=== PATIENT | male | born 1955 | race Caucasian/White ===

== ENCOUNTER → 2019-07-07 11:05 | Outpatient (BNVA) | payer MEDICARE, OTHER, SELFPAY | PROVIDERS: Visit Provider Nurse Practitioner Family | DX: E78.5 Hyperlipidemia, unspecified (principal); E11.9 Type 2 diabetes mellitus without complications; I10 Essential (primary) hypertension; F41.9 Anxiety disorder, unspecified | CPT/HCPCS: 80053; 80061; 82044; 83036; 83721 ==

== ENCOUNTER → 2019-11-09 10:49 | Outpatient (BNVA) | payer MEDICARE, OTHER, SELFPAY | PROVIDERS: Visit Provider Nurse Practitioner Family | DX: E11.9 Type 2 diabetes mellitus without complications (principal); E78.5 Hyperlipidemia, unspecified; I10 Essential (primary) hypertension; G82.20 Paraplegia, unspecified; L98.9 Disorder of the skin and subcutaneous tissue, unspecified | CPT/HCPCS: 80048; 80061; 83036 ==

== ENCOUNTER → 2020-12-20 11:33 | Outpatient (BNVA) | payer MEDICARE, SELFPAY | PROVIDERS: Visit Provider Nurse Practitioner Family | DX: E11.9 Type 2 diabetes mellitus without complications (principal); I10 Essential (primary) hypertension; E78.5 Hyperlipidemia, unspecified | CPT/HCPCS: 80053; 80061; 83036 ==

== ENCOUNTER → 2021-03-22 10:10 | Outpatient (BNVA) | payer MEDICARE, SELFPAY | PROVIDERS: PCP Nurse Practitioner Family; Visit Provider Nurse Practitioner Family | DX: E78.5 Hyperlipidemia, unspecified (principal); I10 Essential (primary) hypertension; E11.9 Type 2 diabetes mellitus without complications; F41.9 Anxiety disorder, unspecified | CPT/HCPCS: 84478 ==

== ENCOUNTER → 2021-11-21 08:31 | Outpatient (BNVA) | payer MEDICARE, SELFPAY | PROVIDERS: PCP Nurse Practitioner Family; Visit Provider Nurse Practitioner Family | DX: I10 Essential (primary) hypertension (principal) | CPT/HCPCS: 80053 ==

== ENCOUNTER → 2022-03-27 09:05 | Outpatient (BNVA) | payer MEDICARE, SELFPAY | PROVIDERS: PCP Nurse Practitioner Family; Visit Provider Nurse Practitioner Family | DX: I10 Essential (primary) hypertension (principal); E11.9 Type 2 diabetes mellitus without complications; Z12.5 Encounter for screening for malignant neoplasm of prostate; E78.5 Hyperlipidemia, unspecified; N52.9 Male erectile dysfunction, unspecified | CPT/HCPCS: 80053; 80061; 83036; G0103 ==

== ENCOUNTER → 2022-06-20 09:29 | Outpatient (BNVA) | payer MEDICARE, SELFPAY | PROVIDERS: PCP Nurse Practitioner Family; Visit Provider Nurse Practitioner Family | DX: E78.5 Hyperlipidemia, unspecified (principal) | CPT/HCPCS: 80061; 83721 ==

== ENCOUNTER → 2022-09-10 09:28 | Outpatient (BNVA) | payer MEDICARE, SELFPAY | PROVIDERS: PCP Nurse Practitioner Family; Visit Provider Nurse Practitioner Family | DX: E78.5 Hyperlipidemia, unspecified (principal); E11.9 Type 2 diabetes mellitus without complications | CPT/HCPCS: 80061; 83036 ==

== ENCOUNTER → 2023-02-18 11:07 | Outpatient (BNVA) | payer MEDICARE, SELFPAY | PROVIDERS: PCP Nurse Practitioner Family; Visit Provider Nurse Practitioner Family | DX: R05.9 Cough, unspecified (principal); U07.1 COVID-19 | CPT/HCPCS: 87400; 87426 ==

== ENCOUNTER → 2023-04-07 10:02 | Outpatient (BNVA) | payer MEDICARE, SELFPAY | PROVIDERS: PCP Nurse Practitioner Family; Visit Provider Nurse Practitioner Family | DX: Z12.5 Encounter for screening for malignant neoplasm of prostate (principal); E11.9 Type 2 diabetes mellitus without complications; I10 Essential (primary) hypertension | CPT/HCPCS: 80053; 80061; G0103 ==

== ENCOUNTER → 2023-07-17 09:13 | Outpatient (BNVA) | payer MEDICARE, SELFPAY | PROVIDERS: PCP Nurse Practitioner Family; Visit Provider Nurse Practitioner Family | DX: I10 Essential (primary) hypertension (principal); E11.9 Type 2 diabetes mellitus without complications; F41.9 Anxiety disorder, unspecified; E78.5 Hyperlipidemia, unspecified | CPT/HCPCS: 80053; 80061; 83036 ==

== ENCOUNTER → 2023-09-23 10:21 | Outpatient (BNVA) | payer MEDICARE, SELFPAY | PROVIDERS: PCP Nurse Practitioner Family; Visit Provider Nurse Practitioner Family | DX: I10 Essential (primary) hypertension (principal); E78.5 Hyperlipidemia, unspecified | CPT/HCPCS: 80053; 80061; 83721 ==

== ENCOUNTER → 2023-12-30 11:36 | Outpatient (BNVA) | payer MEDICARE, SELFPAY | PROVIDERS: PCP Nurse Practitioner Family; Visit Provider Nurse Practitioner Family | DX: E78.5 Hyperlipidemia, unspecified (principal) | CPT/HCPCS: 80061 ==

== ENCOUNTER → 2024-02-22 09:51 | Outpatient (BNVA) | payer MEDICARE, SELFPAY | PROVIDERS: PCP Nurse Practitioner Family; Visit Provider Nurse Practitioner Family | DX: J06.9 Acute upper respiratory infection, unspecified (principal) | CPT/HCPCS: 87400; 87426 ==

== ENCOUNTER 2024-04-28 20:30 | Emergency (ER) | payer MEDICARE, SELFPAY ==
[2024-04-28] VITALS (12 sets, daily range): BP systolic 126–172; BP diastolic 80–104; PULSE 73–92; RESP 16–18; TEMP 36.8; O2SAT 92–95; BMI 33.4
--- NOTE | 2024-04-28 20:35 | CTR_ITS ---
PROCEDURE INFORMATION: Exam: CT Head Without Contrast Exam date and time: 04/28/2024 8:41 PM Age: 69 years old Clinical indication: Stroke-like symptoms; Generalized weakness; Additional info: Possible stroke TECHNIQUE: Imaging protocol: Computed tomography of the head without contrast. Radiation optimization: All CT scans at this facility use at least one of these dose optimization techniques: automated exposure control; mA and/or kV adjustment per patient size (includes targeted exams where dose is matched to clinical indication); or iterative reconstruction. Other technique: STROKE PROTOCOL was implemented. COMPARISON: No relevant prior studies available. RADIATION DOSE METRICS: Total DLP (mGy-cm): 1094.98 FINDINGS: Brain: There is no evidence of intracranial hemorrhage. No mass effect or midline shift. Large hypodensity in the distribution of the left middle cerebral artery consistent with subacute to chronic infarct. Chronic lacunar infarct in the left basal ganglia. Cerebral ventricles: There is moderate volume loss and commensurate ventricular dilatation, consistent with the patient's age. Paranasal sinuses: There are no air-fluid levels. Mastoid air cells: The visualized mastoid air cells are well aerated. Nasal cavity: Moderate chronic nasal septal deviation to the right. Bones: Unremarkable. No acute fracture. Soft tissues: Unremarkable. Vasculature: There is atheromatous calcification of the intracranial internal carotid and vertebral arteries. CT/CT head wo con* [id number] IMPRESSION: 1. No acute intracranial findings. 2. Subacute to chronic large infarct in the distribution of the left middle cerebral artery. Consider correlation with MRI to exclude possible expansion of a pre-existing chronic infarct. 3. Chronic left basal ganglia lacunar infarct. 4. Age-appropriate involutional changes of the brain. ASSESSMENT: ASPECTS ([place] Stroke Program Early CT Score) is 10. The process is not acute.
[2024-04-28 20:45] LABS: Basophils % 0.3 %; Eosinophils # 0.2 10^3/uL (0.0-0.8); Eosinophils % 2.4 %; Hematocrit 40.5 % (37-53); Lymphocytes # 1.8 10^3/uL (0.8-4.8); Lymphocytes % 20.7 %; Mean Corpuscular HGB Conc 32.3 g/dL (30-55); Mean Corpuscular Hemoglobin 27.5 pg (27-33); Mean Corpuscular Volume 85.1 fl (82-101); Mean Platelet Volume 10.7 fL (7.4-10.4); Monocytes # 0.7 10^3/uL (0.2-0.9); Monocytes % 8.3 %; Neutrophils # 5.87 10^3/uL (1.8-7.7); Nucleated Red Blood Cells % 0 %; Platelet Count 185 10^3/cmm (157-399); Red Blood Count 4.76 10^6/uL (3.85-5.65); Red Cell Distribution Width 15.3 % (12.1-15.1); White Blood Count 8.65 10^3/uL (3.29-11.43)
[2024-04-28 20:46] LABS: Glucose Point of Care 133 mg/dL (70-110)
--- NOTE | 2024-04-28 20:46 | W.ED.NEUROSD ---
HPI - Neuro Symptoms/Deficit General: Chief Complaint: Neuro Symptoms/Deficit Stated Complaint: L Larger Pupil, Hx of Strokes Time Seen by Provider: 04/28/24 20:31 History of Present Illness: 69-year-old man with a history of severe stroke who his aphasia and right-sided hemiparesis who presents the emergency room with concern for stroke. felt that one of his pupils looked larger than the other. Here there may be just a's very slight difference. Otherwise he appears at his baseline. He follows commands. He does not speak. Chronic right sided flaccidity. Related Data Previous Rx's Medication Instructions Recorded blood sugar diagnostic (Blood #100 ea 07/18/19 Glucose Test strips) blood-glucose meter (Blood Glucose #1 ea 07/18/19 Monitoring kit) stabalizing braces #1 ea 11/09/19 sildenafil 50 mg tablet 50 mg PO DAILY PRN sexual activity 03/27/22 #10 tabs simvastatin 40 mg tablet See Rx Instructions .Route 01/08/24 .COMPLEX #90 tabs amlodipine 5 mg tablet See Rx Instructions .Route 02/04/24 .COMPLEX #90 tabs sertraline 50 mg tablet See Rx Instructions .Route 02/04/24 .COMPLEX #90 tabs azithromycin 250 mg tablet See Rx Instructions PO .COMPLEX #6 02/22/24 (Zithromax Z-Marcio) tabs metformin 500 mg tablet See Rx Instructions .Route 03/16/24 .COMPLEX #90 tabs Allergies Allergy/AdvReac Type Severity Reaction Status Date / Time No Known Allergies Allergy Verified 02/22/24 09:33 Review of Systems Narrative: Constitutional symptoms: Negative except as documented in HPI. Skin symptoms: Negative except as documented in HPI. Eye symptoms: Negative except as documented in HPI. ENMT symptoms: Negative except as documented in HPI. Respiratory symptoms: Negative except as documented in HPI. Cardiovascular symptoms: Negative except as documented in HPI. Gastrointestinal symptoms: Negative except as documented in HPI. Genitourinary symptoms: Negative except as documented in HPI. Musculoskeletal symptoms: Negative except as documented in HPI. Neurologic symptoms: Negative except as documented in HPI. Psychiatric symptoms: Negative except as documented in HPI. Endocrine symptoms: Negative except as documented in HPI. FOR[facility] ED PFSH: Medical History (Updated 04/28/24 @ 21:35 by Mago Fowler MD) Hypertension Hyperlipidemia with target low density lipoprotein (LDL) cholesterol less than 100 mg/dL Type 2 diabetes mellitus without complication Family History Father CAD (coronary artery disease) Social History Smoking and tobacco/nicotine status: never used tobacco/nicotine Second hand smoke exposure: No Alcohol intake: unknown Substance/Drug Use: never Adopted: No Lives independently: Yes Household members: spouse Physical Exam Narrative: EXAM NARRATIVE: General: Alert, no acute distress. Skin: Warm, dry. Head: Normocephalic, atraumatic. Neck: Supple, trachea midline. Eye: Extraocular movements are intact. Ears, nose, mouth and throat: mucosa moist. Cardiovascular: Regular, Normal peripheral perfusion. Respiratory: Lungs are clear to auscultation, respirations are non-labored, breath sounds are equal, Symmetrical chest wall expansion. Gastrointestinal: Soft, Nontender, Non distended Musculoskeletal: Normal ROM, no deformity. Neurological: Alert and oriented, No focal neurological deficit observed. Psychiatric: Cooperative, appropriate mood & affect. Course Vital Signs: Vital signs: Vital Signs Temperature 98.3 F 04/28/24 20:38 Pulse Rate 79 04/28/24 21:00 Respiratory Rate 18 04/28/24 20:38 Blood Pressure 144/83 04/28/24 21:00 Pulse Oximetry 94 04/28/24 21:00 Oxygen Delivery Me thod Room Air 04/28/24 20:38 MDM - Neuro Symptoms/Deficit Medical Decision Making Medical decision making: Differential diagnosis for patient with focal neurologic deficit(s) includes but not limited to and based on the above HPI, review of systems and physical exam: ischemic stroke, hemorrhagic stroke and embolic stroke secondary to atrial fibrillation), TIA, Chow's palsey, metabolic encephalopathy with previous stroke. Orders placed to evaluate differential diagnosis based on the above differential, HPI and physical exam CT of the head without contrast: Large chronic infarct in the differential Leo of the left middle cerebral artery. Patient's chronic symptoms are consistent with this. This was reviewed and interpreted by myself the emergency room physician. I also reviewed the radiology report. Lab Review: Laboratory results were reviewed and interpreted by myself the emergency room physician. Lab results are unremarkable. No leukocytosis. No anemia. No renal failure. Consultation: I spoke with Dr. Hampton who is on-call for the neurologist service. He agrees this is most likely not a new stroke. Patient does have old stroke which is evident on the CT scan. I reviewed the patient's medical record. Reexamination: Patient remained stable. No new focal motor deficits. Chronic right flaccidity and aphasia. Assessment and plan: Feared complaint without diagnosis History of supravascular accident - Discharged home - Discussed plan with patient. Answered any questions. - Evaluation and treatment of this problem were appropriate in the emergency setting. Lab Data 04/28/24 20:37 04/28/24 20:[address] 04/28/24 20:35 IMPRESSION: 1. No acute intracranial findings. 2. Subacute to chronic large infarct in the distribution of the left middle cerebral artery. Consider correlation with MRI to exclude possible expansion of a pre-existing chronic infarct. 3. Chronic left basal ganglia lacunar infarct. 4. Age-appropriate involutional changes of the brain. ASSESSMENT: ASPECTS ([place] Stroke Program Early CT Score) is 10. The process is not acute. ADDENDUM: 04/28/242109 THIS REPORT CONTAINS FINDINGS THAT MAY BE CRITICAL TO PATIENT CARE. The findings were verbally communicated via telephone conference with MAGO FOWLER at 9:09 PM EMBEDDED LINUX ENGINEER on 04/28/2024. The findings were acknowledged and understood. Laboratory Results WBC 8.65 10^3/uL (3.29-11.43) 04/28/24 20:37 RBC 4.76 10^6/uL (3.85-5.65) 04/28/24 20:37 Hgb 13.10 g/dL (11.27-16.99) 04/28/24 20:37 Hct 40.5 % (37-53) 04/28/24 20:37 MCV 85.1 fl (82-101) 04/28/24 20:37 MCH 27.5 pg (27-33) 04/28/24 20: MCHC 32.3 g/dL (30-55) 04/28/24 20:37 RDW 15.3 % (12.1-15.1) H 04/28/24 20:37 Plt Count 185 10^3/cmm (157-399) 04/28/24 20:37 MPV 10.7 fL (7.4-10.4) H 04/28/24 20:37 Neut % (Auto) 68.0 % 04/28/24 20:37 Lymph % (Auto) 20.7 % 04/28/24 20:37 [place] % (Auto) 8.3 % 04/28/24 20:37 Eos % (Auto) 2.4 % 04/28/24 20:37 Baso % (Auto) 0.3 % 04/28/24 20:37 Neut # (Auto) 5.87 10^3/uL (1.8-7.7) 04/28/24 20:37 Lymph # (Auto) 1.8 10^3/uL (0.8-4.8) 04/28/24 20:37 [place] # (Auto) 0.7 10^3/uL (0.2-0.9) 04/28/24 20:37 Eos # (Auto) 0.2 10^3/uL (0.0-0.8) 04/28/24 20:37 Baso # (Auto) 0.0 10^3/uL (0.0-0.1) 04/28/24 20:37 Nucleated RBC % (auto) 0 % 04/28/24 20:37 Nucleated RBCs # 0.0 /100WBC 04/28/24 20:37 PT 12.90 SECONDS (12.1-14.9) 04/28/24 20:37 INR 0.95 (0.8-1.2) 04/28/24 20:37 APTT 26.7 SECONDS (23.9-36.7) 04/28/24 20:37 Sodium 139 mmol/L (136-145) 04/28/24 20:37 Potassium 3.8 mmol/L (3.5-5.1) 04/28/24 20:37 Chloride 100 mmol/L (98-107) 04/28/24 20:37 Carbon Dioxide 30 mmol/L (22-29) H 04/28/24 20:37 Anion Gap 12.8 (5-19) 04/28/24 20:37 BUN 18 mg/dL (8-23) 04/28/24 20:37 Creatinine 0.7 mg/dL (0.7-1.2) 04/28/24 20:37 GFR Calculation Not Reportable 04/28/24 20:37 Glucose 132 mg/dL (65-115) H 04/28/24 20:37 POC Glucose 133 mg/dL (70-110) H 04/28/24 20:42 Calculated Osmolality 292 mOsm/kg (285-295) 04/28/24 20:37 Calcium 9.7 mg/dL (8.5-10.5) 04/28/24 20:37 Total Bilirubin 0.9 mg/dL (0.15-1.2) 04/28/24 20:37 AST 23 U/L (0-40) 04/28/24 20:37 ALT 51 U/L (0-41) H 04/28/24 20:37 Alkaline Phosphatase 156 U/L (40-130) H 04/28/24 20:37 Total Protein 8.0 g/dL (6.6-8.7) 04/28/24 20:37 Albumin 3.9 g/dL (3.5-5.2) 04/28/24 20:37 Globulin 4.1 g/dL (1.3-4.6) 04/28/24 20:37 All radiology interpretation(s) finalized by discharge Discharge Plan Discharge Patient Disposition: Home Clinical Impression: Feared complaint without diagnosis, History of cerebrovascular accident Condition: Stable Prescriptions: No Action (DME) blood-glucose meter [Blood Glucose Monitoring] Kit See Rx Instructions .ROUTE .MEDSUPPLY Qty: 1 0RF Rx Instructions: As directed (DME) Blood Glucose Test Strip See Rx Instructions .ROUTE .MEDSUPPLY Qty: 100 1RF Rx Instructions: As directed (DME) stabalizing braces See Rx Instructions .Route .MEDSUPPLY Qty: 1 0RF Rx Instructions: as needed sildenafil 50 mg tablet 50 mg PO DAILY PRN (Reason: sexual activity) Qty: 10 1RF Rx Instructions: administer 30 minutes to 4 hours before activity azithromycin [Zithromax Z-Marcio] 250 mg tablet See Rx Instructions PO .COMPLEX Qty: 6 0RF Rx Instructions: For 250 mg dose pack: take 500 mg today (day 1), then 250 mg for 4 days (days 2-5) PO simvastatin 40 mg tablet See Rx Instructions .ROUTE .COMPLEX Qty: 90 0RF Dose Instruction: Take 1 tablet by mouth once daily Rx Instructions: Take 1 tablet by mouth once daily sertraline 50 mg tablet See Rx Instructions .ROUTE .COMPLEX Qty: 90 0RF Dose Instruction: Take 1 tablet by mouth once daily Rx Instructions: Take 1 tablet by mouth once daily amlodipine 5 mg tablet See Rx Instructions .ROUTE .COMPLEX Qty: 90 0RF Dose Instruction: Take 1 tablet by mouth once daily Rx Instructions: Take 1 tablet by mouth once daily metformin 500 mg tablet See Rx Instructions .ROUTE .COMPLEX Qty: 90 0RF Dose Instruction: Take 1 tablet by mouth once daily Rx Instructions: Take 1 tablet by mouth once daily Discharge Orders: Discharge ED (Routine); Ordered 04/28/24 Ordered By: Mago Fowler Referrals: Kelle Barnard FNP [Primary Care Provider] - Discharge Diet: Usual diet Discharge Activity: Increase activity as tolerated Patient Instructions: Opioid Safety, Pain Management Activity Restrictions/Additional Instructions: Thank you for choosing [facility] for your healthcare needs today. Please realize this is an emergency room and that we are providing you with a medical screening exam and this may not be complete and all inclusive of all the testing and or work up that you may need to determine your ailment or severity of your illness. You have been screened and evaluated and felt safe for discharge. Health conditions do change or evolve sometimes and as such it is important that you follow up with your Primary Doctor to be re checked, 3-5 days is a general good time frame for follow up. You are always welcome to return to the ED for re assessment if your symptoms are worsening or you have new concerns Coding Level of Care Code ED Hat Body Inspector for Josephine Ugarte
[2024-04-28 21:05] LABS: Alanine Aminotransferase 51 U/L (0-41); Albumin Level 3.9 g/dL (3.5-5.2); Alkaline Phosphatase 156 U/L (40-130); Anion Gap 12.8 (5-19); Aspartate Amino Transferase 23 U/L (0-40); Blood Urea Nitrogen 18 mg/dL (8-23); Calcium 9.7 mg/dL (8.5-10.5); Carbon Dioxide 30 mmol/L (22-29); Chloride 100 mmol/L (98-107); Creatinine Clr Calc Pharmacy 96.9785; Globulin 4.1 g/dL (1.3-4.6); Glucose 132 mg/dL (65-115); Osmolality Calculated 292 mOsm/kg (285-295); Potassium 3.8 mmol/L (3.5-5.1); Sodium 139 mmol/L (136-145); Total Bilirubin 0.9 mg/dL (0.15-1.2)
--- NOTE | 2024-04-28 21:06 | PC.NURSE ---
spoke to sara on phone. sara states that she noticed the unequal pupils around 1730 today.
[2024-04-28 21:07] LABS: INR 0.95 (0.8-1.2)
[2024-04-28 21:08] LABS: Partial Thromboplastin Time 26.7 SECONDS (23.9-36.7)
== END 2024-04-28 23:40 | disposition home or self-care (01) ==
PROVIDERS: Emergency Provider Emergency Medicine; PCP Nurse Practitioner Family
DX: Z03.89 Encounter for observation for other suspected diseases and conditions ruled out (principal); Z86.73 Personal history of transient ischemic attack (TIA), and cerebral infarction without residual deficits; Z79.84 Long term (current) use of oral hypoglycemic drugs; E11.9 Type 2 diabetes mellitus without complications; I10 Essential (primary) hypertension; E78.5 Hyperlipidemia, unspecified
CPT/HCPCS: 36416; 70450; 80053; 82962; 85025; 85610; 85730; 99284

== ENCOUNTER → 2024-06-20 08:59 | Outpatient (BNVA) | payer MEDICARE, MEDICAID, SELFPAY | PROVIDERS: PCP Family Medicine; Referring Provider Internal Medicine; Visit Provider Surgery | DX: Z93.1 Gastrostomy status | CPT/HCPCS: 99204 ==